=== PATIENT | male | born 1990 | race Caucasian/White ===

== ENCOUNTER 2016-11-29 07:03 | Day surgery (SDC) | payer OTHER ==
[2016-11-29] VITALS (17 sets, daily range): BP systolic 86–147; BP diastolic 42–92; PULSE 52–84; RESP 14–20; Ht 167.6 cm; Wt 74.0 kg
[~2016-11-29] VITALS: Ht 167.6 cm; Wt 74.0 kg
[~2016-11-29 07:03] MED LIST: BUPIVACAINE 0.25% (MPF) 30 ML INJ ONE; CEFAZOLIN 2 GM/50 ML (PMX) 50 ML IVPB ONE; SOD CHLORIDE 0.9% 1,000 ML IV ONE
[2016-11-29] MEDS ORDERED: PROCHLORPERAZINE 10 MG INJ IV PRN (08:00)
[2016-11-29] MEDS ORDERED: MEPERIDINE 25 MG INJ IV PRN (08:00)
[2016-11-29] MEDS ORDERED: HYDROmorphONE (0.2 MG/ML) 10ML SYG IV PRN ×2 (08:00)
[2016-11-29] MEDS ORDERED: FENTAnyl 50 MCG/ML VIAL IV PRN (08:00)
[2016-11-29] MEDS ORDERED: DIPHENHYDRAMINE 50 MG INJ IV PRN (08:00)
[2016-11-29] MEDS ORDERED: OXYCODONE/ACETAMINOPHEN (5/325) TAB PO PRN ×2 (08:00)
[2016-11-29] MEDS ORDERED: ONDANSETRON 4 MG INJ IV PRN (08:00)
[2016-11-29] MEDS ORDERED: FENTAnyl 50 MCG/ML VIAL ONE (08:03)
[2016-11-29] MEDS ORDERED: PROPOFOL 20 ML ONE (08:03)
[2016-11-29] MEDS ORDERED: LIDOCAINE 2% (SDV) 5 ML INJ ONE (08:03)
[2016-11-29] MEDS ORDERED: MIDAZOLAM 1 MG/ML 2 ML INJ ONE (08:03)
[2016-11-29] MEDS ORDERED: ALBU18HF INHALATION (08:16)
[2016-11-29] MEDS ORDERED: LIDOCAINE 1% (MDV) 20 ML INJ ONE (08:39)
[2016-11-29] MEDS ORDERED: GLYCOPYRROLATE 0.4 MG INJ ONE (08:41)
[2016-11-29] MEDS ORDERED: ONDANSETRON 4 MG INJ ONE (08:44)
[2016-11-29] MEDS ORDERED: METOCLOPRAMIDE 10 MG INJ ONE (08:44)
[2016-11-29] MEDS ORDERED: CEFAZOLIN 1 GM INJ ONE (08:44)
[2016-11-29] MEDS ORDERED: DIPHENHYDRAMINE 50 MG INJ ONE (09:08)
[2016-11-29] MEDS ORDERED: PROPOFOL 100 ML ONE (09:10)
[2016-11-29] MEDS ORDERED: KETAMINE 500 MG INJ ONE (09:13)
[2016-11-29] MEDS ORDERED: LIDOCAINE 1% (MDV) 20 ML INJ INJ ONE (09:34)
[2016-11-29] MEDS ORDERED: BUPIVACAINE 0.25% (MPF) 30 ML INJ INJ ONE (09:34)
--- NOTE | 2016-11-29 09:53 | OPR ---
Date/Time of Note Date/Time of Note DATE: 11/29/16 TIME: 09:46 Operative Report Procedure Date: Nov 29, 2016 Preoperative Diagnosis recurrent pilonidal cyst Postoperative Diagnosis same Operation Performed 1. recurrent pilonidal cystectomy with cyst size of 13 x 8 cm and 13 cm incision 2. localized adjacent tissue transfer with the use of skin flaps 104 sq cm defect 3. implantation of biologic implant cpt code 30430 4. therapeutic injection of subcutaneous marcaine cpt code 88082 Surgeon: Santo KNOX Anesthesia Type: MAC Estimated Blood Loss: 0 - 10 ml's Specimens recurrent pilonidal cyst Grafts/Implants implantation of biologic matrix Complications: no Indications This is a 26-year-old male with a recurrent pilonidal cyst. He requires surgical repair. Risks alternatives benefits and percent were discussed the patient. Patient expressed understanding consents to the operation. Procedure Description Patient is taken to the OR and prepped and draped in usual sterile fashion. Surgical timeout is performed. IV antibiotics given. Large elliptical incision is made with a 10 blade around the recurrent pilonidal cyst. Dissection cautery was carried down all the way to the bone. The large defect is resected en bloc. There is good hemostasis. Due to the large tissue defect localized adjacent tissue transfer with these of skin flaps were performed. Prior to closure biologic matrix material is placed in the wound for improved healing. Multilayer closure with interrupted 2-0 Vicryl and interrupted nylon for the skin. Therapeutic subcutaneous local anesthesia is injected at the beginning and end end of the case. Dry dressings were applied. Santo KNOX Nov 29, 2016 09:53
[2016-11-29] MEDS ORDERED: HYDROCODONE/APAP (5/325) TAB PO ONE (10:00)
== END 2016-11-29 11:57 | disposition home or self-care (01) ==
LOC: SDS 07:03
PROVIDERS: ATTEND Surgery
DX: L05.01 Pilonidal cyst with abscess (principal); J45.909 Unspecified asthma, uncomplicated
CPT/HCPCS: 11772; 15777; 88304; J0690; J1200; J2250; J2405; J2765; J3010; Q4118; Z7512; Z7610